=== PATIENT | male | born 1970 | race Caucasian/White ===

== ENCOUNTER 2021-09-03 23:46 | Outpatient (CLI) | payer OTHER, SELFPAY ==
[2021-09-03] MEDS: Albuterol HFA 18 GM 200 PUFF INH IH (13:45)
[2021-09-03] MEDS: Inhaler, Assist Device 1 EACH MC (13:46)
--- NOTE | 2021-09-03 15:12 | DI.RAD_ITS ---
Exam(s) XR KNEE RT 3V AP,LAT,ARNAUD EXAM: XR KNEE RT 3V AP,LAT,ARNAUD CLINICAL HISTORY: ARTHRITIS, M13.80. TECHNIQUE: 2D digital imaging was performed of the right knee. Three views obtained. AP, lateral an d PA tunnel views were obtained. COMPARISON: No priors. FINDINGS: BONES: No acute fracture is present. No bony destructive lesion is seen. Small enthesophyte at the whatley perior patella and anterior tibial tuberosity. JOINTS: The knee is normally aligned. Very small suprapatellar joint effusion. SOFT TISSUE: Normal. IMPRESSION: No significant arthritis. DATA REPOSITORY: RADIATION DOSE DELIVERED:
--- NOTE | 2021-09-03 15:12 | DI.RAD_ITS ---
Exam(s) XR ANKLE LT 2V EXAM: XR ANKLE LT 2V CLINICAL HISTORY: ARTHRITIS, M13.80 TECHNIQUE: 2D digital imaging was performed of the left ankle. Images were obtained. AP, lateral and oblique views were obtained. COMPARISON: No exams were available for comparison FINDINGS: BONES: No acute fracture is present. No bony destructive lesion is seen. There is a large well cortic ated osseous density adjacent to the medial malleolus which may represent a nonunited fracture fragme nt. JOINTS:The ankle mortise is normally aligned. SOFT TISSUE: Normal. IMPRESSION: No significant degenerative changes in the left ankle. DATA REPOSITORY: RADIATION DOSE DELIVERED:
--- NOTE | 2021-09-03 15:12 | DI.RAD_ITS ---
Exam(s) XR HAND LT LIMITED EXAM: XR HAND LT LIMITED CLINICAL HISTORY: ARTHRITIS, M13.80. TECHNIQUE: 2D digital imaging was performed of the left hand. Two views were obtained. PA and late ral views were obtained. COMPARISON: No exams were available for comparison FINDINGS: BONES: No acute fracture is present. No bony destructive lesion is seen. Prior PIP fusion of the left 5th finger. JOINTS: No dislocation present. Mild periarticular spurring at the DIP joints of the 4th and 5th fing ers. SOFT TISSUE: Normal. 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 DATA REPOSITORY: RADIATION DOSE DELIVERED:
--- NOTE | 2021-09-03 15:12 | DI.RAD_ITS ---
Exam(s) XR HAND RT LIMITED EXAM: XR HAND RT LIMITED CLINICAL HISTORY: ARTHRITIS, M13.80. TECHNIQUE: 2D digital imaging was performed of the right hand. Two images were obtained. PA and lat eral views were obtained. COMPARISON: No exams were available for comparison FINDINGS: BONES: No acute fracture is present. No bony destructive lesion is seen. Postsurgical changes at the base of the proximal phalanx of the little finger. Deformity at the DIP joint of the right little fi nger. This may be posttraumatic. Please correlate clinically. JOINTS: No dislocation present. SOFT TISSUE: Normal. IMPRESSION: Posttraumatic changes involving the right little finger. DATA REPOSITORY: RADIATION DOSE DELIVERED:
--- NOTE | 2021-09-03 15:12 | DI.RAD_ITS ---
Exam(s) XR KNEE LT 3V AP,LAT,ARNAUD EXAM: XR KNEE LT 3V AP,LAT,ARNAUD CLINICAL HISTORY: ARTHRITIS, M13.80. TECHNIQUE: 2D digital imaging was performed of the left knee. Three images were obtained. AP, late ral and PA tunnel views were obtained. COMPARISON: No exams were available for comparison FINDINGS: BONES: No acute fracture is present. No bony destructive lesion is seen. Enthesophytes at the superi or and inferior patella and the anterior tuberosity. JOINTS: The knee is normally aligned. No joint effusion is seen. SOFT TISSUE: Normal. IMPRESSION: No significant arthritic changes. DATA REPOSITORY: RADIATION DOSE DELIVERED:
--- NOTE | 2021-09-03 15:12 | DI.RAD_ITS ---
Exam(s) XR HIP PELVIS ADULT BL EXAM: XR HIP PELVIS ADULT BL CLINICAL HISTORY: ARTHRITIS, M13.80. TECHNIQUE: 2D digital imaging was performed of the pelvis and bilateral hips. Three images were obt ained. AP pelvis and lateral views of both hips were obtained. COMPARISON: No exams were available for comparison FINDINGS: BONES: No acute fracture is present. No bony destructive lesion is seen. JOINTS: No dislocation present. SOFT TISSUE: Normal. IMPRESSION: Unrmarkable radiographs of bilat hips. Unremarkable radiographs of the pelvis DATA REPOSITORY: RADIATION DOSE DELIVERED:
--- NOTE | 2021-09-03 15:12 | DI.RAD_ITS ---
Exam(s) XR ANKLE RT 2V EXAM: XR ANKLE RT 2V CLINICAL HISTORY: ARTHRITIS, M13.80. TECHNIQUE: 2D digital imaging was performed of the right ankle. Two images were obtained. AP and l ateral views were obtained. COMPARISON: No exams were available for comparison FINDINGS: BONES: No acute fracture is present. No bony destructive lesion is seen. Several well corticated oss eous densities are seen near the both the medial, posterior and lateral malleoli. JOINTS: The ankle mortise is normally aligned. Hypertrophic changes are seen at the anterior distal t ibia. There is mild narrowing of the medial tibial talar joint. SOFT TISSUE: Normal. IMPRESSION: Degenerative changes of the right ankle. DATA REPOSITORY: RADIATION DOSE DELIVERED:
== END 2021-09-03 23:47 | disposition home or self-care (01) ==
LOC: RT 09-05 23:47
PROVIDERS: Visit Provider Chiropractor
DX: J45.998 Other asthma (principal); M13.88 Other specified arthritis, other site; Y26.XXXA Exposure to smoke, fire and flames, undetermined intent, initial encounter
CPT/HCPCS: 73521; 73562; 94060; 73120; 73600